=== PATIENT | female | born 1960 | race Caucasian/White ===

== ENCOUNTER 2018-02-22 09:04 | Outpatient (CLI) | payer OTHER, SELFPAY ==
[2018-02-22 10:55] LABS: ALT 25 U/L (12-78); AST 20 U/L (15-37); Albumin 4.3 g/dL (3.4-5.0); Alkaline Phosphatase 109 U/L (46-116); BUN 23 mg/dL (7-18); Bilirubin, Total 0.4 mg/dL (0.2-1.0); CO2 32.3 mmol/L (21.0-32.0); CREATININE 0.79 mg/dL (0.55-1.02); Calcium 9.6 mg/dL (8.5-10.1); Chloride 101 mmol/L (98-107); Cholesterol 287 mg/dL (50-200); Glucose 100 mg/dL (70-100); HDL Cholesterol 40 mg/dL (40-60); LDL CHOLESTEROL 214 mg/dL (<100); TSH (W/Ref FT4) 1.39 uIU/mL (0.358-3.74); Total Protein 7.4 g/dL (6.4-8.2); Triglyceride 183 mg/dL (30-150)
[2018-02-22 11:03] LABS: Anion Gap 7.7 mmol/L (3-11); Potassium 3.9 mmol/L (3.5-5.1); Sodium 141 mmol/L (136-145)
== END 2018-02-22 09:24 ==
DX: Z00.00 Encounter for general adult medical examination without abnormal findings (principal)
CPT/HCPCS: 36415; 80053; 80061; 83721; 84443

== ENCOUNTER 2018-03-07 00:59 | Outpatient (CLI) | payer OTHER, SELFPAY ==
--- NOTE | 2018-03-07 13:00 | DI.MAMMO_ITS ---
SYMPTOMS/DIAGNOSIS: BREAST CA SCREENING, Z12.31 MAMMOGRAMS: Mammograms were interpreted according to the usual protocol including computer analysis with CAD system, tomosynthesis and C view imaging. Comparison is with the prior examinations. No masses or microcalcifications are seen. There is nothing to suggest malignancy. IMPRESSION: Negative mammogram. Routine screening is recommended. Category 1 , breast density B. MQSA ASSESSMENT OF FINDINGS: Negative. Category 1. Patient will receive a letter notifying them of these results. BI-RADS category B. There are scattered areas of fibroglandular density.
== END 2018-03-07 01:19 ==
DX: Z12.31 Encounter for screening mammogram for malignant neoplasm of breast (principal)
CPT/HCPCS: 77063; 77067

== ENCOUNTER 2018-07-04 00:23 | Outpatient (CLI) | payer OTHER, SELFPAY ==
--- NOTE | 2018-07-04 08:25 | DI.CT_ITS ---
SYMPTOM/DIAGNOSIS: RECURRENT SINUSITIS, EAR DISCOMFORT, J32.[address]: Sinus CT was performed according to protocol. The frontal sinuses are clear. The mastoid air cells are well pneumatized. There is mild mucosal thickening seen in the maxillary sinuses. There does appear to be a small mucus retention cyst or polyp in the left maxillary sinus. The sphenoid sinuses are clear. No fluid levels are seen. The mastoid air cells are well pneumatized. The osseous structures are grossly unremarkable. The orbits and retro-orbital soft tissues are unremarkable. IMPRESSION: Mild chronic sinus disease in the maxillary sinuses. Small mucus retention cyst or polyp in the left maxillary sinus.
== END 2018-07-04 00:43 ==
DX: J32.0 Chronic maxillary sinusitis (principal); H92.09 Otalgia, unspecified ear
CPT/HCPCS: 70486

== ENCOUNTER 2019-02-12 01:18 | Outpatient (CLI) | payer OTHER, SELFPAY ==
[2019-02-12 10:03] LABS: Anion Gap 8.1 mmol/L (3-11); BUN 19 mg/dL (7-18); CO2 32.9 mmol/L (21.0-32.0); CREATININE 0.74 mg/dL (0.55-1.02); Calcium 9.3 mg/dL (8.5-10.1); Calculated LDL 114 mg/dL; Chloride 103 mmol/L (98-107); Cholesterol 177 mg/dL (50-200); Glucose 98 mg/dL (70-100); HDL Cholesterol 41 mg/dL (40-60); Sodium 144 mmol/L (136-145); Triglyceride 113 mg/dL (30-150)
== END 2019-02-12 01:38 ==
DX: Z00.00 Encounter for general adult medical examination without abnormal findings (principal); E78.5 Hyperlipidemia, unspecified; I10 Essential (primary) hypertension
CPT/HCPCS: 36415; 80048; 80061

== ENCOUNTER 2019-04-07 01:10 | Outpatient (CLI) | payer OTHER, SELFPAY ==
--- NOTE | 2019-04-07 16:08 | DI.MAMMO_ITS ---
EXAM: MG MAMMO SCREENING CLINICAL HISTORY: screening, Z12.39 TECHNIQUE: Bilateral full field digital CC and MLO mammographic images were obtained with 3D tomosyn thesis and utilizing computer aided detection (CAD). COMPARISON: Available for comparison. FINDINGS: Masses/Architectural Distortion: None seen. Microcalcifications: No suspicious pleomorphic-type are seen. Skin Thickening/Nipple Retraction: None. IMPRESSION: 1. No significant interval change with no specific features of malignancy noted. 2. Unless there is more urgent need, screening mammography is recommended, as per [employer] guidelines. ACR BI-RAD Category- 1 Negative Breast Density - Category B - Scattered areas of fibroglandular density A negative radiographic report should not delay biopsy if a dominant or clinically suspicious mass is present. Up to ten percent of cancers are not identified on mammography. A negative report may reinforce clinical impression. Adenosis and dense breasts may obscure an underlying neoplasm. False positive reports average 6 to 10%. Patient will receive a letter notifying them of these results.
== END 2019-04-07 01:30 ==
DX: Z12.31 Encounter for screening mammogram for malignant neoplasm of breast (principal)
CPT/HCPCS: 77063; 77067

== ENCOUNTER 2020-01-01 04:11 | Outpatient (CLI) | payer OTHER, SELFPAY ==
--- NOTE | 2020-01-01 07:00 | DI.RAD_ITS ---
EXAM: XR LUMBAR SPINE COMPLETE CLINICAL HISTORY: low back pain post fall 2 months ago, RADIATION DOWN BOTH LEGS, M54.5. TECHNIQUE: 2D digital imaging was performed. COMPARISON: CR LUMBAR SPINE COMPLETE from 01/08/2011 FINDINGS: BONES: No acute fracture or destructive lesion. Vertebral bodies are unremarkable. Mild degenerative changes of the facets in the lower lumbar spine is noted. DISKS: Intervertebral disc spaces are maintained. ALIGNMENT: There is again seen a right convex thoracolumbar scoliosis. SOFT TISSUE: Normal. IMPRESSION: No acute fracture or dislocation. If there are radicular concerns, an MRI may be considered for furt her evaluation. DATA REPOSITORY: RADIATION DOSE DELIVERED:
== END 2020-01-01 04:31 ==
DX: M54.5 Low back pain (principal)
CPT/HCPCS: 72110

== ENCOUNTER 2020-01-18 01:06 | Outpatient (CLI) | payer OTHER, SELFPAY ==
--- NOTE | 2020-01-18 16:32 | DI.DEXA_ITS ---
EXAM: XR DEXA BONE DENSITY W/WO DIPAK CLINICAL HISTORY: low back pain post fall, Hx osteopenia 2015,M85.80 TECHNIQUE: Prior examination dated 11/30/2014. COMPARISON: CR XR LUMBAR SPINE COMPLETE from 01/01/2020 FINDINGS: Lateral Spine Image: Unremarkable. No compression deformities identified. Left hip: Total T-Score: -2.0. This compares with -2.0 on the prior examination. Total Z-Score: -1.2 T- and Z-scores: Findings consistent with osteopenia and increased fracture risk. Lumbar Spine: Total T-Score: -2.5. This compares with -2.4 on the prior examination. Total Z-Score: -1.3 T- and Z-scores: Findings consistent with osteoporosis and high fracture risk. IMPRESSION: Findings consistent with osteoporosis in the lumbar spine.
== END 2020-01-18 01:26 ==
DX: M85.88 Other specified disorders of bone density and structure, other site (principal)
CPT/HCPCS: 77080

== ENCOUNTER 2020-02-05 04:08 | Outpatient (CLI) | payer OTHER, SELFPAY ==
--- NOTE | 2020-02-05 07:30 | DI.MRI_ITS ---
EXAM: MR LUMBAR SPINE WO CLINICAL HISTORY: Bilateral low lumbar pain not responding to conserVATIVE TX,OSTEOPENIA,M54.. TECHNIQUE: Multiplanar multisequence MRI was performed. COMPARISON: No exams were available for comparison FINDINGS: Lumbosacral spine MRI was performed according to the usual protocol. No significant bony signal abno rmality seen. Intervertebral discs show diffusely mildly decreased signal. Conus medullaris appears intact. There are moderate facet degenerative changes at L4-5 and L5-S1. The bony central spinal canal appears intact throughout. No neural foraminal narrowing noted. There are mild disc bulges at L 3 4 and L4-5 without evidence of focal disc herniation. Mild left convex lumbar scoliosis noted. IMPRESSION: Degenerative facet changes at L4-5 and L5-S1, mild disc bulges at L3-4 and L4-5. No gross disc herni ation. No other significant findings. DATA REPOSITORY:
== END 2020-02-05 04:28 ==
DX: M47.816 Spondylosis without myelopathy or radiculopathy, lumbar region (principal); M47.817 Spondylosis without myelopathy or radiculopathy, lumbosacral region
CPT/HCPCS: 72148

== ENCOUNTER 2020-02-22 22:10 | Outpatient (REF) | payer OTHER, SELFPAY ==
[2020-02-22 21:48] LABS: Abs Immature Grans 0.06 10^3/uL (0.0-0.06); Absolute Basophil Count 0.04 10^3/uL (0.0-0.2); Absolute Eosinophil Count 0.03 10^3/uL (0.0-0.7); Basophils % 0.3; Eosinophils % 0.2; HCT 41.4 % (36.0-46.0); HGB 14.2 g/dL (11.2-15.7); Immature Grans % 0.4; Lymphocytes % 10.2; MCH 31.1 pg (27.0-33.0); MCHC 34.3 % (32.0-36.0); MCV 90.8 fL (80-95); MPV 9.9 fL (8.0-11.0); Monocytes % 6.3; Neutrophils % 82.6; Nucleated RBC 0 %; Platelet Count 379 10^3/uL (130-400); RBC 4.56 10^6/uL (3.93-5.22); RDW 12.3 % (11.7-14.6); RDW-SD 40.8 fL; WBC 13.76 10^3/uL (4.4-10.8)
[2020-02-22 21:49] LABS: Absolute Monocyte Count 0.87 10^3/uL (0.1-0.8); Absolute Neutrophil Count 11.37 10^3/uL (1.2-6.7)
[2020-02-22 22:23] LABS: ALT 29 U/L (14-59); AST 25 U/L (15-37); Alkaline Phosphatase 101 U/L (46-116); Anion Gap 4.4 mmol/L (3-11); BUN 24 mg/dL (7-18); Bilirubin, Total 0.4 mg/dL (0.2-1.0); CO2 32.6 mmol/L (21.0-32.0); CREATININE 0.83 mg/dL (0.55-1.02); Calcium 9.9 mg/dL (8.5-10.1); Chloride 102 mmol/L (98-107); Glucose 106 mg/dL (74-106); Lipase 124 U/L (73-393); Potassium 3.3 mmol/L (3.5-5.1); Sodium 139 mmol/L (136-145); TSH (W/Ref FT4) 0.73 uIU/mL (0.36-3.74); Total Protein 8.2 g/dL (6.4-8.2)
[2020-02-29 12:16] LABS: Chlamydia Result Negative (Negative); GC Result Negative (Negative)
== END 2020-02-22 22:30 ==
LOC: LBN 22:10
PROVIDERS: Visit Provider Physician Assistant
DX: R10.9 Unspecified abdominal pain (principal); N76.0 Acute vaginitis; N39.0 Urinary tract infection, site not specified; B96.89 Other specified bacterial agents as the cause of diseases classified elsewhere
CPT/HCPCS: 80053; 83690; 87491; 87591; 84443; 85025; 87086; 87480; 87510; 87660

== ENCOUNTER 2020-02-23 01:12 | Outpatient (CLI) | payer OTHER, SELFPAY ==
--- NOTE | 2020-02-23 06:45 | DI.US_ITS ---
EXAM: US ABDOMEN RENAL CLINICAL HISTORY: bilateral flank pain x 2 weeks. RUQ pain.,R10.9 TECHNIQUE: Ultrasound performed using standard protocol. COMPARISON: US LEFT BREAST ULTRASOUND from 10/11/2015 FINDINGS: Ultrasound examination of the abdomen was performed with additional renal/bladder ultrasound examinat ion. The liver is unremarkable in appearance. There is no evidence of cholelithiasis or biliary dilatatio n. Common hepatic duct measures 3 millimeters in diameter. Pancreas appears intact as visualized, pancreatic tail not seen. Spleen is unremarkable in appearance. Abdominal aorta and IVC are of normal diameter. The kidneys are normal in size and shape. There is no evidence of a renal mass or hydronephrosis. N ote is made of probable left inferior pole nonobstructing renal calculus with posterior acoustic shad owing and twinkle artifact observed. No additional renal calculi identified. Urinary bladder is unremarkable in appearance with pre and postvoid urinary bladder volume measuremen ts 156 cc and 0 cc respectively. Ureteral jets were nonvisualized. IMPRESSION: Probable nonobstructing 7 millimeter left inferior pole renal calculus. No other significant findings. DATA REPOSITORY:
== END 2020-02-23 01:32 ==
PROVIDERS: Visit Provider Physician Assistant
DX: N20.0 Calculus of kidney (principal)
CPT/HCPCS: 76770; 76700

== ENCOUNTER 2020-03-01 15:35 | Outpatient (CLI) | payer OTHER, SELFPAY ==
[2020-03-01 16:08] LABS: Abs Immature Grans 0.01 10^3/uL (0.0-0.06); Absolute Basophil Count 0.04 10^3/uL (0.0-0.2); Absolute Eosinophil Count 0.06 10^3/uL (0.0-0.7); Absolute Lymphocyte Count 2.25 10^3/uL (1.2-3.4); Absolute Monocyte Count 0.77 10^3/uL (0.1-0.8); Absolute Neutrophil Count 4.76 10^3/uL (1.2-6.7); Basophils % 0.5; Eosinophils % 0.8; HGB 13.5 g/dL (11.2-15.7); Immature Grans % 0.1; Lymphocytes % 28.5; MCH 31.5 pg (27.0-33.0); MCHC 34.6 % (32.0-36.0); MCV 91.1 fL (80-95); MPV 9.1 fL (8.0-11.0); Monocytes % 9.8; Neutrophils % 60.3; Nucleated RBC 0 %; Platelet Count 330 10^3/uL (130-400); RBC 4.28 10^6/uL (3.93-5.22); RDW 12.3 % (11.7-14.6); RDW-SD 40.7 fL; WBC 7.89 10^3/uL (4.4-10.8)
[2020-03-01 17:33] LABS: Anion Gap 6.4 mmol/L (3-11); BUN 20 mg/dL (7-18); CO2 31.6 mmol/L (21.0-32.0); CREATININE 0.75 mg/dL (0.55-1.02); Calcium 9.9 mg/dL (8.5-10.1); Chloride 99 mmol/L (98-107); Glucose 97 mg/dL (74-106); Potassium 3.8 mmol/L (3.5-5.1); Sodium 137 mmol/L (136-145)
== END 2020-03-01 15:55 ==
DX: R10.11 Right upper quadrant pain (principal); R10.2 Pelvic and perineal pain; R31.9 Hematuria, unspecified
CPT/HCPCS: 36415; 80048; 85025

== ENCOUNTER 2020-03-03 00:38 | Outpatient (CLI) | payer OTHER, SELFPAY ==
[2020-03-03] MEDS: Omnipaque 350 MG/ML 50 ML BTL IJ (08:02)
[2020-03-03] MEDS: Breeza Beverage 473 ML BTL PO ×2 (08:03→08:04)
[2020-03-03] MEDS: Omnipaque 350 MG/ML 100 ML BTL IJ (09:31)
[2020-03-03] MEDS: Normal Saline - Diluent 50 ML VIAL IV (09:31)
[2020-03-03] MEDS: Normal Saline Flush 10 ML SYR IVP (10:02)
--- NOTE | 2020-03-03 10:03 | DI.CT_ITS ---
EXAM: CT ABDOMEN PELVIS W CLINICAL HISTORY: Pain beneath ribs R>L, bilat groin AND ABD pain, elev WBC,R10.9 TECHNIQUE: Imaging Protocol: Axial computed tomography images with coronal and sagittal reformatted images were created and reviewed CONTRAST MATERIAL: Intravenous: Omnipaque 350 Contrast volume:100 mL Oral: Yes COMPARISON: No exams were available for comparison FINDINGS: ABDOMEN: Lung Bases: Normal where visualized. Small hiatal hernia. Liver: Normal density. No measurable mass. Portal, Superior Mesenteric, and Splenic Veins: Unremarkable. Gallbladder and Biliary Tract: No radiodense calculus or dilation. Pancreas: Normal density, no abnormal calcifications or inflammatory process. Spleen: Normal. Adrenals: No masses seen. Kidneys: Normal size, contour and axis. There is a 3 mm nonobstructing stone in the lower pole of the left kidney. No masses seen. Abdominal Aorta: Abdominal portion non-dilated. Atherosclerosis. Bowel: No obstruction or bowel wall thickening. Appendix is unremarkable. Diverticulosis seen in the colon but no evidence of acute diverticulitis. Moderate amount of stool in the colon. Peritoneal Cavity: No ascites, collection or mesenteric inflammatory response. Lymph Nodes: Within normal limits. Bones: Unremarkable. Soft Tissues: No evidence of inguinal hernia. PELVIS: Bladder: Symmetric distention, no gross wall thickening. Reproductive Organs: Unremarkable as visualized. Lymph Nodes: Within normal limits. Bones: Within normal limits. IMPRESSION: 1. No acute abdominal pelvic process. 2. Colonic diverticulosis but no evidence of acute diverticulitis. 3. Left nephrolithiasis. No hydronephrosis. RADIATION DOSE DELIVERED: 730.08mGy.cm Total DLP DATA REPOSITORY: All CT scans at this facility are submitted to the National Radiology Data Registry (NRDR) Dose Index Registry (DIR) with the [employer] (ACR). RADIATION OPTIMIZATION: All CT scans at this facility use at least one of these dose optimization te chniques: automated exposure control; mA and/or kV adjustment per patient size (includes targeted exa ms where dose is matched to clinical indication); or iterative reconstruction.
== END 2020-03-03 00:58 ==
DX: K57.30 Diverticulosis of large intestine without perforation or abscess without bleeding (principal); N20.0 Calculus of kidney
CPT/HCPCS: 74177; J3490; Q9967

== ENCOUNTER 2020-03-07 16:11 | Outpatient (REF) | payer OTHER, SELFPAY ==
--- NOTE | 2020-03-07 15:10 | PAPFT_PTH ---
PATIENT: Alyce Rowan LOC: [facility] U#:[id number] AGE/SX: 59/F ROOM: RE03/07/[address]: Emilie Jiménez : 1960 BED: DIS: 03/07/2020 SPEC #: [id number] RECD: 03/08/20 12:46 STATUS: KATHIJad REQ #: [id number] CLAY: 03/07/20 15:[address]: Emilie Jiménez DEPT: [facility] Cytology RECD BY: Cele Small ENTERED: 03/08/20 12:47 SP TYPE: PAPFT OTHR DR: Gale Pastrana APRN Tissues: 1 - CX/ENDOCX FOR PAP SMEARS Procedures: PAP THIN PREP/UVM Screening HPV DNA PROBE Comments: [id number] (CVPH#) (UNSATISFACTORY FOR EVALUATION)
== END 2020-03-07 16:31 ==
LOC: LBN 16:11
PROVIDERS: Visit Provider Obstetrics & Gynecology Gynecology
DX: Z12.4 Encounter for screening for malignant neoplasm of cervix (principal); R87.615 Unsatisfactory cytologic smear of cervix
CPT/HCPCS: 88142; 87624

== ENCOUNTER 2020-04-18 00:53 | Outpatient (CLI) | payer OTHER, SELFPAY ==
--- NOTE | 2020-04-18 07:15 | DI.MAMMO_ITS ---
EXAM: MG MAMMO SCREENING CLINICAL HISTORY: screening,z12.39 TECHNIQUE: Bilateral full field digital CC and MLO mammographic images were obtained with 3D tomosyn thesis and utilizing computer aided detection (CAD). COMPARISON: Available for comparison. FINDINGS: Masses/Architectural Distortion: None seen. Microcalcifications: No suspicious pleomorphic-type are seen. Skin Thickening/Nipple Retraction: None. IMPRESSION: 1. No significant interval change with no specific features of malignancy noted. 2. Unless there is more urgent need, screening mammography is recommended, as per [employer] guidelines. BI-RADS Category 1 - Negative Breast Density - Category B - Scattered areas of fibroglandular density Breast density category C or D implies that the patient has dense breast tissue. Dense breast tissue is very common and is not abnormal but dense breast tissue can make it harder to find cancer on a ma mmogram. Also, dense breast tissue may increase their breast cancer risk. This information about the result of the mammogram report was provided to the patient to raise their awareness. Use this report when you speak with the patient about their risks for breast cancer, which includes their family hist ory. At that time, you may recommend for more screening tests (Ultrasound or MRI) as they might be us eful based on their risk. A negative radiographic report should not delay biopsy if a dominant or clinically suspicious mass is present. Up to ten percent of cancers are not identified on mammography. A negative report may reinforce clinical impression. Adenosis and dense breasts may obscure an underlying neoplasm. False positive reports average 6 to 10%. Patient will receive a letter notifying them of these results.
== END 2020-04-18 01:13 ==
DX: Z12.31 Encounter for screening mammogram for malignant neoplasm of breast (principal)
CPT/HCPCS: 77063; 77067

== ENCOUNTER 2020-06-02 20:34 | Outpatient (REF) | payer OTHER, SELFPAY ==
[2020-06-08 15:22] LABS: Chlamydia Result Negative (Negative); GC Result Negative (Negative)
== END 2020-06-02 20:35 | disposition home or self-care (01) ==
LOC: LBN 20:34
PROVIDERS: Visit Provider Physician Assistant
DX: N39.0 Urinary tract infection, site not specified (principal); N76.0 Acute vaginitis; R10.2 Pelvic and perineal pain
CPT/HCPCS: 87077; 87491; 87591; 87086; 87186; 87480; 87510; 87660

== ENCOUNTER 2020-07-21 17:15 | Outpatient (REF) | payer OTHER, SELFPAY ==
[2020-07-21 15:16] LABS: Bilirubin Negative (Negative); Blood Negative (Negative); Clarity Clear (Clear); Glucose Negative (Negative); Ketones Negative (Negative); Leukocyte Esterase Negative (Negative); Nitrite Negative (Negative); Urobilinogen 0.2 EU/dL (Up TO 0.2)
== END 2020-07-21 17:16 | disposition home or self-care (01) ==
LOC: LBN 17:15
DX: R31.9 Hematuria, unspecified (principal)
CPT/HCPCS: 81003

== ENCOUNTER 2021-03-31 03:58 | Outpatient (CLI) | payer OTHER, SELFPAY ==
[2021-03-31 11:31] LABS: ALT 54 U/L (14-59); AST 27 U/L (15-37); Albumin 4.8 g/dL (3.4-5.0); Alkaline Phosphatase 86 U/L (46-116); Anion Gap 8.8 mmol/L (3-11); BUN 23 mg/dL (7-18); Bilirubin, Total 0.5 mg/dL (0.2-1.0); CO2 32.2 mmol/L (21.0-32.0); CREATININE 0.8 mg/dL (0.55-1.02); Calcium 9.6 mg/dL (8.5-10.1); Calculated LDL 153 mg/dL (<100); Chloride 100 mmol/L (98-107); Cholesterol 219 mg/dL (<200); Glucose 90 mg/dL (74-106); HDL Cholesterol 46 mg/dL (40-60); Potassium 3.7 mmol/L (3.5-5.1); Sodium 141 mmol/L (136-145); Total Protein 7.7 g/dL (6.4-8.2); Triglyceride 103 mg/dL (<150)
== END 2021-03-31 03:59 | disposition home or self-care (01) ==
LOC: LBO 03:59
DX: E78.5 Hyperlipidemia, unspecified (principal)
CPT/HCPCS: 36415; 80053; 80061

== ENCOUNTER 2021-04-03 10:22 | Outpatient (REF) | payer OTHER, SELFPAY ==
--- NOTE | 2021-04-03 08:00 | PAPFT_PTH ---
PATIENT: Alyce Rowan LOC: [facility] U#:[id number] AGE/SX: 60/F ROOM: RE04/03/[address]: Gale Pastrana APRN : 1960 BED: DIS: 04/03/2021 SPEC #: [id number] RECD: 04/03/21 18:43 STATUS: MAYE REAlan #: [id number] CLAY: 04/03/21 08:[address]: Gale Pastrana DEPT: [facility] Cytology RECD BY: Cele Small Tissues: 1 - CX/ENDOCX FOR PAP SMEARS Procedures: PAP THIN PREP/UVM Screening HPV DNA PROBE Comments: [id number]
== END 2021-04-03 10:23 | disposition home or self-care (01) ==
LOC: LBN 10:22
DX: Z12.4 Encounter for screening for malignant neoplasm of cervix (principal); Z11.51 Encounter for screening for human papillomavirus (HPV)
CPT/HCPCS: 88142; 87624

== ENCOUNTER 2021-04-25 02:02 | Outpatient (CLI) | payer OTHER, SELFPAY ==
--- NOTE | 2021-04-25 07:45 | DI.MAMMO_ITS ---
Exam(s) MAMMO SCREENING EXAM: MAMMO SCREENING CLINICAL HISTORY: screening,z12.39. TECHNIQUE: Bilateral full field digital CC and MLO mammographic images were obtained with 3D tomosyn thesis and utilizing computer aided detection (CAD). COMPARISON: Prior mammograms dating back to 2011, the most recent being March 2020. FINDINGS: There has been interval bilateral reduction surgery within the last year. There are new bilateral findings which are mostly related to the bilateral reduction surgery. However, posteriorly in the right breast there is a microcalcification group, possibly related to a n odule located 7 cm in from the nipple on the CC view which requires spot Mag 2D and 3D compression CC views. Also ultrasound. There is also a microcalcification group located posteriorly up again sugg est wall in the opposite-left breast which is 10 cm in from the nipple on the CC view and require spo t views. There are no new spiculated masses. Some new architectural distortion is related to the interval reduction surgery IMPRESSION: There has been bilateral reduction surgery since the most recent mammogram of March 2020. Bilatera l findings as described above which will require additional mammographic imaging including spot Mag v iews and 3D views. Also recommend ultrasound. BI-RADS Category 0 - Assessment Incomplete: Need additional imaging evaluation Breast Density - Category B - Scattered areas of fibroglandular density Breast density Category C or D implies that the patient has dense breast tissue. Dense breast tissue can make it harder to find cancer on a mammogram. Dense breast tissue is also associated with an incr eased risk of breast cancer. This information about the result of the mammogram report was provided to the patient to raise their awareness. Use this report when you speak with the patient about their risks for breast cancer, which includes their family history. At that time, you may recommend additional screening tests (Ultrasoun d or MRI) as these tests may add significant information. A negative radiographic report should not delay biopsy if a dominant or clinically suspicious mass is present. Up to ten percent of cancers are not identified on mammography. A negative report may reinforce clinical impression. Adenosis and dense breasts may obscure an underlying neoplasm. False positive reports average 6 to 10%. Patient will receive a letter notifying them of these results.
== END 2021-04-25 02:22 ==
DX: Z12.31 Encounter for screening mammogram for malignant neoplasm of breast (principal); R92.8 Other abnormal and inconclusive findings on diagnostic imaging of breast
CPT/HCPCS: 77063; 77067

== ENCOUNTER 2021-05-09 01:21 | Outpatient (CLI) | payer BC, SELFPAY ==
--- NOTE | 2021-05-09 | DI.US_ITS ---
Exam(s) US BREAST RT LIMITED US BREAST LT LIMITED MG MAMMO SCREEN CALL BACK BI EXAM: US BREAST LT LIMITED CLINICAL HISTORY: F/U MAMMO, MICROCALCIFICATIONS TECHNIQUE: Ultrasound performed using standard protocol. COMPARISON: US US BREAST RT LIMITED from 05/09/2021 FINDINGS: Additional mammographic views of both breasts and bilateral breast ultrasound are interpreted in conj unction. In the right breast, an area of grouped microcalcifications seen on recent mammography was evaluated with magnification views and compression views as well as breast ultrasound. This is in the lower ou ter quadrant of the right breast, about 5-6 cm from the nipple on the MLO projection. Magnification views show heterogeneous microcalcifications including some miguelito-like forms. These number at least 20 -25. No gross mammographic mass identified. Breast ultrasound shows a well-circumscribed mildly het erogeneous 12 millimeter mass with some internal cystic areas in the 12 o'clock position, this does n ot appear to correspond to the mammographically identified microcalcifications and no mass is identif ied in the lower outer quadrant of the breast. In the left breast, the suspicious grouping of microcalcifications is in the lower outer quadrant of the breast about 7-8 cm from the nipple on MLO projection. This contains varied 5 forms including ro d-like forms. The breast ultrasound shows a 12 millimeter in diameter cyst with some internal echoes in the 6 o'clock position in the breast and shows a 12 millimeter in diameter complex mass in the 12 o'clock position about 1 cm from the nipple. These do not appear to correspond to any mammographic abnormalities. IMPRESSION: Bilateral masslike findings in each breast seen on ultrasound are probably related to recent breast r eduction surgery but may be followed with repeat ultrasound in 6 months. Bilateral groups of microcalcification in the lower outer quadrant of each breast are suspicious for malignancy. These may represent early appearance of post surgical dystrophic changes but malignancy is not excluded and biopsy should be considered. BI-RADS Cat 4 - Suspicious Abnormality: Biopsy should be considered Breast Density - Category B - Scattered areas of fibroglandular density DATA REPOSITORY:
== END 2021-05-09 01:41 ==
DX: R92.8 Other abnormal and inconclusive findings on diagnostic imaging of breast (principal); R92.0 Mammographic microcalcification found on diagnostic imaging of breast
CPT/HCPCS: 76642; 77063; 77067

== ENCOUNTER 2022-05-04 12:51 | Outpatient (CLI) | payer BC, SELFPAY ==
[2022-05-04 17:42] LABS: Anion Gap 6.7 mmol/L (3-11); BUN 20 mg/dL (7-18); CO2 31.3 mmol/L (21.0-32.0); CREATININE 0.8 mg/dL (0.55-1.02); Calcium 9.7 mg/dL (8.5-10.1); Chloride 103 mmol/L (98-107); Estimated GFR 84.82 (mL/min/1.73m2); Glucose 94 mg/dL (74-106); Potassium 3.8 mmol/L (3.5-5.1); Sodium 141 mmol/L (136-145)
== END 2022-05-04 12:52 | disposition home or self-care (01) ==
LOC: LBO 12:54
PROVIDERS: PCP Nurse Practitioner Family; Visit Provider Nurse Practitioner Family
DX: Z00.00 Encounter for general adult medical examination without abnormal findings (principal)
CPT/HCPCS: 36415; 80048

== ENCOUNTER 2023-05-20 14:51 | Outpatient (REF) | payer BC, SELFPAY ==
[2023-05-20 15:36] LABS: Anion Gap 7.7 mmol/L (3-11); BUN 32 mg/dL (7-18); CO2 27.3 mmol/L (21.0-32.0); CREATININE 0.9 mg/dL (0.55-1.02); Calcium 9.3 mg/dL (8.5-10.1); Chloride 106 mmol/L (98-107); Estimated GFR 73.19 (mL/min/1.73m2); Glucose 117 mg/dL (74-106); Potassium 4.1 mmol/L (3.5-5.1); Sodium 141 mmol/L (136-145)
== END 2023-05-20 14:52 | disposition home or self-care (01) ==
LOC: LBN 14:51
PROVIDERS: PCP Nurse Practitioner Family; Visit Provider Nurse Practitioner Family
DX: I10 Essential (primary) hypertension (principal)
CPT/HCPCS: 80048

== ENCOUNTER 2024-05-22 09:18 | Outpatient (CLI) | payer BC, SELFPAY ==
[2024-05-22 13:01] LABS: ALT 29 U/L (14-59); AST 25 U/L (15-37); Albumin 4.8 g/dL (3.4-5.0); Alkaline Phosphatase 93 U/L (46-116); Anion Gap 8.3 mmol/L (3-11); BUN 30 mg/dL (7-18); Bilirubin, Total 0.42 mg/dL (0.2-1.0); CO2 31.7 mmol/L (21.0-32.0); Calcium 9.9 mg/dL (8.5-10.1); Calculated LDL 167 mg/dL (<100); Chloride 103 mmol/L (98-107); Cholesterol 251 mg/dL (<200); Estimated GFR 64.09 (mL/min/1.73m2); Glucose 109 mg/dL (74-106); HDL Cholesterol 51 mg/dL (40-60); Potassium 4.1 mmol/L (3.5-5.1); Sodium 143 mmol/L (136-145); Total Protein 7.8 g/dL (6.4-8.2); Triglyceride 167 mg/dL (<150)
[2024-05-22 18:46] LABS: HIV-1/2 Ag & Ab Screen Negative (Negative)
[2024-05-22 19:43] LABS: HBs Antibody, Quant <3.1 mIU/mL (See Note); Hep B Surface Ab Negative (See Note); Hepatitis B Core Antibody Negative (Negative); Hepatitis B Surface Antigen Negative (Negative)
[2024-05-22 19:47] LABS: Hepatitis C Ab w Rflx HCV PCR Negative (Negative)
== END 2024-05-22 09:19 | disposition home or self-care (01) ==
LOC: LOS 09:19
PROVIDERS: PCP Nurse Practitioner Family; Referring Provider Nurse Practitioner Family; Visit Provider Nurse Practitioner Family
DX: Z11.4 Encounter for screening for human immunodeficiency virus [HIV] (principal); E78.2 Mixed hyperlipidemia; Z11.59 Encounter for screening for other viral diseases
CPT/HCPCS: 36415; 80053; 80061; 86704; 86706; 86803; 87340; 87389